=== PATIENT | female | born 1950 | race Caucasian/White ===

== ENCOUNTER 2025-11-01 09:54 | Inpatient (IN) | payer OTHER ==
[~2025-11-01] VITALS: Ht 170.2 cm; Wt 68.9 kg
[2025-11-01] MEDS ORDERED: ZOLPIDEM 5 MG TABLET PO PRN (10:15)
[2025-11-01] MEDS ORDERED: MAG HYDROX/AL HYDROX/SIMETH 30 ML LIQUID UDC PO PRN (10:15)
[2025-11-01] MEDS ORDERED: MAGNESIUM HYDROXIDE 30 ML LIQUID UDC PO PRN (10:15)
[2025-11-01 10:40] VITALS: BP 158/72; TEMP 98; O2SAT 98
[2025-11-01] MEDS ORDERED: HYDR-5156 PO (10:52)
[2025-11-01] MEDS ORDERED: DOCU-141 PO (10:52)
[2025-11-01] MEDS ORDERED: GABA-532 PO (10:52)
[2025-11-01] MEDS ORDERED: RISP0.5T82 PO (10:52)
[2025-11-01] MEDS ORDERED: MEMA10TA22 PO (10:52)
[2025-11-01] MEDS ORDERED: BUSP10TA3 PO (10:52)
[2025-11-01] MEDS ORDERED: RISP-32 PO (10:52)
[2025-11-01] MEDS ORDERED: CARV12.52 PO (10:52)
[2025-11-01] MEDS ORDERED: AMLO-212 PO (10:52)
[2025-11-01] MEDS: AMLODIPINE 5 MG TABLET PO SCH (13:00)
[2025-11-01] MEDS: MEMANTINE HCL 10 MG TABLET PO SCH (13:00)
[2025-11-01 16:32] VITALS: BP 126/80; TEMP 98; O2SAT 98
[2025-11-01 17:46] VITALS: BP 126/75
[2025-11-01] MEDS: ENSURE ENLIVE (VAN) 240 ML LIQUID PO SCH (17:48)
[2025-11-01] MEDS: DOCUSATE SODIUM 100 MG CAPSULE PO SCH (17:52)
[2025-11-01] MEDS: CARVEDILOL 12.5 MG TABLET PO SCH (17:53)
[2025-11-01] MEDS ORDERED: LORAZEPAM 1 MG TABLET PO PRN (21:45)
[2025-11-01] MEDS ORDERED: TEMAZEPAM 7.5 MG CAPSULE PO PRN (21:45)
[2025-11-02 07:58] LABS: PLATELET COUNT (AUTO) 209 K/uL (179-408); RED BLOOD CELL COUNT(AUTO) 4.50 MIL/uL (3.63-4.92); RED CELL DISTRIBUTION WIDTH 13.9 % (12.3-17.7); WHITE BLOOD COUNT (AUTO) 5.9 K/uL (3.8-11.8)
[2025-11-02 08:20] LABS: ASPARTATE AMINOTRANSFERASE 19 U/L (15-37); CREATININE 1.2 mg/dL (0.6-1.3); SODIUM SERUM 139 mmol/L (136-145); TOTAL PROTEIN, SERUM 7.3 g/dL (6.4-8.2); UREA NITROGEN, BLOOD 23 mg/dL (7-18)
[2025-11-02 08:31] VITALS: BP 132/61; TEMP 98; O2SAT 98
[2025-11-02] MEDS: LORAZEPAM 1 MG TABLET PO PRN (14:23)
[2025-11-02 19:58] VITALS: BP 114/49; TEMP 98.1; O2SAT 100
[2025-11-02] MEDS: TEMAZEPAM 7.5 MG CAPSULE PO PRN (21:23)
[2025-11-03 08:12] VITALS: BP 160/76; TEMP 97.9; O2SAT 96
[2025-11-03 16:06] VITALS: BP 145/71; TEMP 98.3; O2SAT 95
[2025-11-03] MEDS: DIVALPROEX 125 MG TABLET.DR PO SCH (16:27)
[2025-11-03 19:57] VITALS: BP 137/64; TEMP 98.1; O2SAT 95
[2025-11-04 08:18] VITALS: BP 160/67; TEMP 98; O2SAT 98
[2025-11-04 15:18] VITALS: BP 187/72; TEMP 98; O2SAT 98
[2025-11-04 17:36] VITALS: BP 124/58; O2SAT 99
[2025-11-04 20:04] VITALS: BP 158/70; TEMP 98.2; O2SAT 96
[2025-11-05] MEDS: DIVALPROEX 250 MG TABLET.DR PO SCH (09:00)
[2025-11-05 09:16] VITALS: BP 148/61; TEMP 98; O2SAT 96
[2025-11-05 15:09] VITALS: BP 171/69; TEMP 98; O2SAT 96
[2025-11-05] MEDS: CLONIDINE-TTS 1 PATCH TD SCH (18:31)
[2025-11-05 20:00] VITALS: BP 117/58; TEMP 98.7; O2SAT 96
[2025-11-06 08:00] VITALS: BP 166/74; TEMP 98; O2SAT 96
[2025-11-06 09:45] VITALS: BP 152/68; O2SAT 98
[2025-11-06 15:55] VITALS: BP 139/63; TEMP 97.5; O2SAT 96
[2025-11-06 19:50] VITALS: BP 119/48; TEMP 98.3; O2SAT 97
[2025-11-07 08:31] VITALS: BP 167/68; TEMP 98.7; O2SAT 96
[2025-11-07] MEDS: ACETAMINOPHEN 325 MG TABLET PO PRN (08:56)
[2025-11-07 09:20] VITALS: BP 146/69; O2SAT 98
[2025-11-07 16:12] VITALS: BP 116/55; TEMP 98.7; O2SAT 96
[2025-11-07 19:57] VITALS: BP 111/37; TEMP 97.6; O2SAT 96
[2025-11-08 08:14] VITALS: BP 116/55; TEMP 98.7; O2SAT 96
[2025-11-08 16:11] VITALS: BP 111/51; TEMP 98.7; O2SAT 96
[2025-11-08 20:01] VITALS: BP 118/62; TEMP 97.9; O2SAT 97
[2025-11-08] MEDS: DIVALPROEX 250 MG TABLET.DR PO SCH (21:09)
[2025-11-09 08:34] VITALS: BP 157/68; TEMP 98.7; O2SAT 96
[2025-11-09] MEDS: DIVALPROEX 500 MG TABLET.DR PO SCH (16:17)
[2025-11-09 16:55] VITALS: BP 117/62; TEMP 98.7; O2SAT 96
[2025-11-09 20:00] VITALS: BP 102/55; TEMP 97.7; O2SAT 96
[2025-11-10 09:42] VITALS: BP 148/75; TEMP 98.1; O2SAT 97
[2025-11-10 16:11] VITALS: BP 128/48; TEMP 97.7; O2SAT 97
[2025-11-10 19:56] VITALS: BP 132/76; TEMP 97.8; O2SAT 96
[2025-11-11 07:56] VITALS: BP 142/65; TEMP 98.2; O2SAT 98
[2025-11-11 07:59] LABS: ASPARTATE AMINOTRANSFERASE 11 U/L (15-37); CREATININE 1.4 mg/dL (0.6-1.3); SODIUM SERUM 147 mmol/L (136-145); TOTAL PROTEIN, SERUM 6.9 g/dL (6.4-8.2); UREA NITROGEN, BLOOD 32 mg/dL (7-18); VALPROIC ACID 62 ug/mL (50-100)
[2025-11-11 08:21] LABS: PLATELET COUNT (AUTO) 172 K/uL (179-408); RED BLOOD CELL COUNT(AUTO) 4.20 MIL/uL (3.63-4.92); RED CELL DISTRIBUTION WIDTH 14.2 % (12.3-17.7); WHITE BLOOD COUNT (AUTO) 4.2 K/uL (3.8-11.8)
[2025-11-11 15:12] VITALS: BP 113/53; TEMP 98.2; O2SAT 96
[2025-11-11 19:41] LABS: *BILIRUBIN,URIN NEGATIVE (NEGATIVE); *BLOOD, URINE NEGATIVE (NEGATIVE); *CLARITY,URINE CLOUDY (CLEAR); *COLOR,URINE YELLOW (YELLOW); *KETONES,URINE 1+ (NEGATIVE); *PROTEIN,URINE TRACE (NEGATIVE); *UROBILINOGEN,URINE 0.2 E.U./dl (NORMAL); LEUKOCYTE ESTERASE ,URINE 1+ (NEGATIVE); NITRITE, URINE POSITIVE (NEGATIVE); UGLUCOSE NEGATIVE (NEGATIVE)
[2025-11-11 20:00] VITALS: BP 121/57; TEMP 98.1; O2SAT 100
[2025-11-11 21:00] LABS: SQUAMOUS EPITHELIAL CELL,UR MODERATE /HPF (NONE SEEN); URINE AMORPHOUS URATE MANY /HPF
[2025-11-12 07:39] VITALS: BP 109/59; TEMP 98; O2SAT 96
[2025-11-12] MEDS ORDERED: CEphaleXIN 250 MG CAPSULE PO SCH (09:00)
[2025-11-12 09:12] LABS: PLATELET COUNT (AUTO) 156 K/uL (179-408); RED BLOOD CELL COUNT(AUTO) 4.21 MIL/uL (3.63-4.92); RED CELL DISTRIBUTION WIDTH 14.3 % (12.3-17.7); WHITE BLOOD COUNT (AUTO) 4.7 K/uL (3.8-11.8)
[2025-11-12 09:19] LABS: CREATININE 1.3 mg/dL (0.6-1.3); SODIUM SERUM 145 mmol/L (136-145); UREA NITROGEN, BLOOD 31 mg/dL (7-18)
[2025-11-12] MEDS ORDERED: CEPH500C2 PO (10:59)
[2025-11-12 15:11] VITALS: BP 116/58; TEMP 97.8; O2SAT 96
[2025-11-12 17:51] VITALS: BP 116/58
== END 2025-11-12 18:13 | DRG 885 ==
LOC: GPS 09:55
PROVIDERS: ADMIT Psychiatry & Neurology Psychosomatic Medicine
DX: F29 Unspecified psychosis not due to a substance or known physiological condition (principal); E44.0 Moderate protein-calorie malnutrition; N39.0 Urinary tract infection, site not specified; F03.93 Unspecified dementia, unspecified severity, with mood disturbance; F31.9 Bipolar disorder, unspecified; D64.9 Anemia, unspecified; I10 Essential (primary) hypertension; Z88.0 Allergy status to penicillin; Z87.440 Personal history of urinary (tract) infections
CPT/HCPCS: 36415; 71045; 80164; 85025; 87077; 87086; C1758; J3490